=== PATIENT | female | born 1955 | race Caucasian/White ===

== ENCOUNTER → 2021-12-08 | Outpatient (CLI) | payer MEDICARE ==
--- NOTE | 2021-12-08 13:32 | Diagnostic Imaging Report ---
CT Lung Screening INDICATION:60 pack year smoking history, cessation 6 months ago TECHNIQUE: Noncontrast, low-dose CT imaging performed according to the lung cancer screening protocol. Auto Exposure Controls were utilize during the CT exam to meet ALARA standards for radiation dose reduction. COMPARISON:Baseline FINDINGS:There is a 3 mm subpleural sub-solid nodular density right lower lobe image 89 series 2. There is some biapical pleural-parenchymal scarring. No dominant or suspicious lung mass. There is no pneumonia or edema. There is no thoracic adenopathy. Thoracic aorta is calcified but nonaneurysmal. Tiny subpleural cysts in the left apex present. There is some symmetrical air trapping, no bronchiectasis. Visualized upper abdomen showed no acute or suspicious finding. IMPRESSION:Benign findings at baseline screening, continued annual low-dose CT screening followup in one year's time recommended. LUNG-RADS CATEGORY:Lung RADS category 2 MODIFIER:None OTHER SIGNIFICANT FINDINGS:COPD and atherosclerotic vascular calcifications Dictated by: Dictated on workstation # [id number]
== END ==
LOC: RAD 11:47
PROVIDERS: ATTEND Nurse Practitioner
DX: Z12.2 Encounter for screening for malignant neoplasm of respiratory organs (principal); Z87.891 Personal history of nicotine dependence
CPT/HCPCS: 71271